=== PATIENT | female | born 2000 | race Two or more races ===

== ENCOUNTER 2024-02-28 15:24 | Emergency (ER) | payer OTHER, SELFPAY ==
[2024-02-28 15:43] VITALS: BP 119/85; PULSE 90; RESP 20; TEMP 36.7; O2SAT 99; BMI 34.5
--- NOTE | 2024-02-28 15:46 | PD.EDBACK ---
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 Limitations: no limitations Related Data Home Medications ?Medication ?Instructions ?Recorded ?Confirmed ferrous sulfate 325 mg (65 mg 325 mg PO BID 03/18/20 04/20/20 iron) tablet (iron) prenat.vits,dimas,[id number] 1 tab PO QDAY 03/18/20 04/20/20 Previous Rx's ?Medication ?Instructions ?Recorded ibuprofen 800 mg tablet 800 mg PO Q8H PRN pain #30 tabs 04/21/20 cyclobenzaprine 10 mg tablet 10 mg PO TID PRN muscle spasm 10 02/28/24 days #30 tab-caps ibuprofen 800 mg tablet 800 mg PO TID PRN pain #30 tabs 02/28/24 Allergies Allergy/AdvReac Type Severity Reaction Status Date / Time No Known Allergies Allergy Verified 08/23/23 12:53 Review of Systems Review of Systems Systems Reviewed: All systems reviewed, normal except as documented Constitutional Constitutional: Reports system reviewed and no additional complaints, except as documented, Denies fever(s) and Denies headache(s) Eyes Eyes: Reports system reviewed and no additional complaints, except as documented and Denies blurry vision ENT Ears, Nose, Mouth, and Throat: Reports system reviewed and no additional complaints, except as documented, Denies headache(s), Denies nasal congestion and Denies nasal discharge Cardiovascular Cardiovascular: Reports system reviewed and no additional complaints, except as documented, Denies chest pain and Denies dyspnea Respiratory Respiratory: Reports system reviewed and no additional complaints, except as documented, Denies chest congestion, Denies cough and Denies dyspnea Gastrointestinal Gastrointestinal: Reports system reviewed and no additional complaints, except as documented and Denies abdominal pain Musculoskeletal Musculoskeletal: Reports system reviewed and no additional complaints, except as documented and Reports back pain Integumentary/Breasts Skin/Breast: Reports system reviewed and no additional complaints, except as documented and Denies rash Neurologic Neurologic: Reports system reviewed and no additional complaints, except as documented, Reports as per HPI and Denies headache(s) Past Medical History Past Medical History NEUROLOGIC: Negative Neurological Disorders CARDIAC: Negative Cardiac Disorders, Myocardial Infarction, Cardiac Arrhythmia, Atrial Fibrillation, Angina, Heart Murmur, Coronary Artery Disease, Atherosclerotic Heart Disease, Peripheral Vascular Disease, Hypercholesterolemia, Aneurysm, Congestive Heart Failure, Congenital Heart Disease, Valvular Heart Disease, Rheumatic Fever, Cardiomyopathy, Edema, Pericarditis, Cellulitis, Deep Vein Thrombosis, Hypertension, Hypotension or Varicose Veins RESPIRATORY: Negative Chronic Obstructive Pulmonary Disease (COPD) GASTROINTESTINAL: Negative Gastrointestinal Disorders GENITOURINARY: Negative Genitourinary Disorders or Renal Disease REPRODUCTIVE: Positive Previous Pregnancies (2019); Negative Pelvic Inflammatory Disease MUSCULOSKELETAL: Positive Scoliosis; Negative Musculoskeletal Disorders or Carpal Tunnel Syndrome ENDOCRINE: Negative Endocrine Disorders, Diabetes Mellitus Type 1, Diabetes Mellitus Type 2, Hypoglycemia, [place]'s Syndrome, [place]'s Disease, Hyperthyroidism, Hypothyroidism, Parathyroid Disease, Pituitary Disease, Systemic Lupus Erythematosus, Syndrome of Inappropriate Antidiuretic Hormone (SIADH), Adrenal Disease or Graves' Disease HEMATOLOGIC: Negative Blood Disorders or Clotting Problems PSYCHO/SOCIAL: Positive Anxiety OTHER HISTORY: Negative Hospitalization, Autoimmune Disease, Down Syndrome, Developmental Delay, Falls, Blood Transfusions, Blood Transfusion Reaction, Anesthesia Reactions, Organ Transplant, MRSA, Clostridium Difficile or Cancer Family History FAMILY HISTORY: Negative Family Psychiatric Problems, Family Respiratory Disorders, Family Cardiac Disorders, Family Gastrointestinal Problems, Family Cancer, Family Surgery or Family Anesthesia Reaction Surgical History SURGICAL: Negative Cardiac Surgery, Pacemaker, Endocrine Surgery, Ear Surgery, Abdominal Surgery, Nephrectomy, Joint Replacement, Arthroscopy, Neurologic Surgery, Brain Shunt, Mastectomy, Lumpectomy, Hysterectomy, Tubal Ligation, Section or Organ Transplant Social History SMOKING STATUS: Never smoker SECOND HAND EXPOSURE: No ED Exam General Limitations: Present no limitations General appearance: Present alert and in no apparent distress Head Head exam: Present atraumatic Eye Eye exam: Present normal appearance, PERRL and EOMI ENT ENT exam: Present normal exam, normal oropharynx and mucous membranes moist Neck Neck exam: Present normal inspection, full ROM and trachea midline Chest Chest inspection: Present normal inspection and symmetric chest wall rise Respiratory Respiratory exam: Present normal lung sounds bilaterally Cardiovascular Cardiovascular exam: Present regular rate, normal rhythm and normal heart sounds Abdominal Exam Abdominal exam: Present soft and normal bowel sounds; Absent distention, tenderness, guarding, rebound or rigidity Extremities Exam Extremities exam: Present normal inspection and full ROM Back Exam Back exam: Present normal inspection, full ROM, tenderness, muscle spasm and paraspinal tenderness; Absent CVA tenderness (R), CVA tenderness (L) or vertebral tenderness Neurological Exam Neurological exam: Present alert, oriented X3 and CN II-XII intact Psychiatric Psychiatric exam: Present normal affect and normal mood Skin Skin exam: Present warm, dry, intact and normal color Course Quality Measures none Vital Signs Vital signs: Vital Signs Temperature 98.1 F 02/28/24 15:43 Pulse Rate 90 02/28/24 15:43 Respiratory Rate 20 02/28/24 15:43 Blood Pressure 119/85 H 02/28/24 15:43 Pulse Oximetry (%) 99 02/28/24 15:43 Oxygen Delivery Method Room Air 02/28/24 15:43 O2 saturation 99% on room air within the limits Back Pain / Injury MDM Narrative MDM Narrative:: 23-year-old female presents to the emergency department complains of lower back pain after moving a client 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 Patient reports no direct trauma Do not believe imaging is indicated at this time symptoms consistent with muscle spasm/muscular pain Patient does report taking ibuprofen before coming to the ER Workmen's Compensation papers completed patient given prescription for ibuprofen and Flexeril Patient discharged home in no distress to follow-up with primary care doctor in the next 24 to 48 hours and for any worsening symptoms to return to the ER immediately Patient data External records reviewed:: [facility] previous records Clinical information provided by:: patient Social determinants that could affect healthcare access:: none Patient has the following chronic illnesses:: None How is presenting disease/condition affected by chronic disease/condition?: no chronic disease Evaluation data The following diagnostics were reviewed and interpreted by me:: other (specify) (N/A) Lab and/or radiology exams considered but not ordered:: Consider not ordered Interpretation Summary: N/A Medications / Prescriptions Medications or Prescriptions considered but not ordered:: Given Medication administrations:: Given Consultations Consultation(s) initiated? (list below): No Diagnosis Differential diagnosis back pain/injury: lumbar radiculopathy, sciatica, strain of lumbar region and thoracic back pain Most likely diagnosis given after review of the tests above:: Back pain Admission Indicated Admission indicated?: not indicated Admission Request Was there a request for admission?: No Disposition Plan Disposition Plan: Discharge Discharge Attestation Discharge Attestation: The patient and all family members were given an opportunity to ask questions and understood the discharge instructions. Discharge instructions specifically effects, indications for sooner follow up or return to the emergency department, and the expected course of current diagnosis. Patient condition: Stable Discharge Plan Plan Patient Disposition: HOME (Self Care) Disposition Comment: Stable Prescriptions/Referrals Prescriptions/Med Rec: New cyclobenzaprine 10 mg tablet 10 mg PO TID PRN (Reason: muscle spasm) 10 Days Qty: 30 0RF ibuprofen 800 mg tablet 800 mg PO TID PRN (Reason: pain) Qty: 30 0RF No Action ferrous sulfate [iron] 325 mg (65 mg iron) Tablet 325 mg PO BID prenat.vits,dimas,[id number] Tablet 1 tab PO QDAY ibuprofen 800 mg tablet 800 mg PO Q8H PRN (Reason: pain) Qty: 30 0RF Problem List Clinical Impression: Back pain, Work related injury Patient/Caregiver Discharge Instructions Education Materials: Back Safety: Bending Additional Instructions: Please follow-up with Workmen's Compensation as discussed for worsening symptoms return immediately Print Language: Liberian Stand Alone Forms: Lou Award Info., Patient Portal Info Letter PA/SEARCH ENGINE OPTIMIZATION CONSULTANT Supervising Physician PA/SEARCH ENGINE OPTIMIZATION CONSULTANT Supervising Physician: Dr Da Silva
== END 2024-02-28 17:31 | disposition home or self-care (01) ==
PROVIDERS: Emergency Provider Emergency Medicine; PCP Family Medicine; Referring Provider Emergency Medicine
DX: S39.92XA Unspecified injury of lower back, initial encounter (principal); X50.0XXA Overexertion from strenuous movement or load, initial encounter; Y93.F2 Activity, caregiving, lifting; Y92.121 Bathroom in nursing home as the place of occurrence of the external cause; Y99.0 Civilian activity done for income or pay
CPT/HCPCS: 99281

== ENCOUNTER 2025-02-09 16:46 | Emergency (ER) | payer MEDICAID, SELFPAY ==
[2025-02-09 16:47] VITALS: BMI 34.5
[2025-02-09 17:32] VITALS: BP 103/70; PULSE 85; RESP 20; TEMP 36.8; O2SAT 99
--- NOTE | 2025-02-09 17:40 | XR_ITS ---
EXAMINATION: PA lateral chest 2 views TECHNIQUE: Upright PA lateral chest 2 views Date and time: February 09, 2025, 1807 hours INDICATIONS: Coughing beginning 1 month ago. FINDINGS: Normal heart size No pneumonia or pulmonary edema. Intact osseous structures IMPRESSION: No pneumonia identified
--- NOTE | 2025-02-09 17:40 | EDNOTE_ITS ---
<Statement entered by Bess Amaral MD - 02/12/25 17:41> As co-signing physician, I was present and available for consult prn. I concur with the plan and care as documented by the midlevel provider. Upper Respiratory Inf. RME/HPI General Chief Complaint: Flu Like Symptoms Stated Complaint: TROUBLE BREATHING X1 DAY, COUGH X1 MONTH Time Seen by Provider: 02/09/25 17:22 Source: patient, RN notes reviewed and old records reviewed Arrival date/time: 02/09/25 16:46 Mode of arrival: ambulatory Limitations: no limitations RME / HPI RME / HPI Narrative: 24yof presents to ED for 1 month history of persistent dry cough. Patient reports fever and congestion at symptom onset, now resolved the past few weeks. Patient took tried OTC cough medications without relief. Reports mild shortness of breath started today. No chest pain, nausea/vomiting, dizziness or syncope reported. Related Data Home Medications ?Medication ?Instructions ?Recorded ?Confirmed ferrous sulfate 325 mg (65 mg 325 mg PO BID 03/18/20 0 04/20/20 iron) tablet (iron) prenat.vits,dimas,[id number] 1 tab PO QDAY 03/18/20 04/20/20 Previous Rx's ?Medication ?Instructions ?Recorded ibuprofen 800 mg tablet 800 mg PO Q8H PRN pain #30 t abs 04/21/20 ibuprofen 800 mg tablet 800 mg PO TID PRN pain #30 t abs 02/28/24 albuterol sulfate 90 mcg/actuation 2 puff inhalation Q 4H PRN 02/09/25 aerosol inhaler (Ventolin HFA) shortness of breath or wheezing #8.5 grams benzonatate 200 mg capsule 200 mg PO TID PRN cough #20 caps 02/09/25 prednisone 50 mg tablet 50 mg PO QDAY 5 days #5 tabs 02/09/25 Allergies Allergy/AdvReac Type Severity Reaction Status Date / Time No Known Allergies Allergy Verified 02/09/25 16:48 Review of Systems Review of Systems Systems Reviewed: All systems reviewed, normal except as documented Constitutional Constitutional: Denies chills and Denies fever(s) ENT Ears, Nose, Mouth, and Throat: Denies nasal congestion Cardiovascular Cardiovascular: Denies chest pain and Reports dyspnea Respiratory Respiratory: Reports dyspnea Gastrointestinal Gastrointestinal: Denies nausea and Denies vomiting Musculoskeletal Musculoskeletal: Denies myalgias Past Medical History Past Medical History GASTROINTESTINAL: Positive Obesity PSYCHO/SOCIAL: Positive Anxiety Surgical History OTHER SURGICAL HX: denies pshx Social History SMOKING STATUS: Never smoker SUBSTANCE USE: does not use ALCOHOL: Never ED Exam General Limitations: Present no limitations General appearance: Present alert and in no apparent distress Head Head exam: Present atraumatic and normocephalic Eye Eye exam: Present normal appearance, PERRL and EOMI ENT ENT exam: Present normal exam and mucous membranes moist Neck Neck exam: Present normal inspection and full ROM Chest Chest inspection: Present normal inspection and symmetric chest wall rise Respiratory Respiratory exam: Present normal lung sounds bilaterally and other (No wheezing, rales or rhonchi); Absent respiratory distress Cardiovascular Cardiovascular exam: Present regular rate and normal rhythm Extremities Exam Extremities exam: Present normal inspection and full ROM Back Exam Back exam: Present normal inspection and full ROM Neurological Exam Neurological exam: Present alert and oriented X3 Psychiatric Psychiatric exam: Present normal affect and normal mood Skin Skin exam: Present warm, dry, intact and normal color Course Quality Measures none Orders Category Date Time Status CXR2 [XR chest 2V] Stat Exams 02/09/25 17:40 Completed ALBUTEROL RT 0.5ml [Proventil Rt 0.5ml] Med 02/09/25 17:40 Discontinued 5 mg INH X1 ONE Sodium Chloride Rt Alessia 0.9% [NS Rt Alessia 0.9%] Med 02/09/25 17:40 Discontinued 3 ml INH PRN PRN predniSONE Med 02/09/25 17:40 Discontinued 40 mg PO X1 ONE Vital Signs Vital signs: Vital Signs Temperature 98.2 F 02/09/25 17:32 Pulse Rate 85 02/09/25 17:32 Respiratory Rate 20 02/09/25 17:32 Blood Pressure 103/70 02/09/25 17:32 Pulse Oximetry (%) 99 02/09/25 17:32 Oxygen Delivery Method Room Air 02/09/25 17:32 Upper Respiratory Infection MDM Narrative MDM Narrative:: 24yof presents to ED for 1 month history of persistent dry cough. Patient reports fever and congestion at symptom onset, now resolved the past few weeks. Patient took tried OTC cough medications without relief. Reports mild shortness of breath started today. No chest pain, nausea/vomiting, dizziness or syncope reported. Patient reassessed. Symptoms improved after prednisone and neb treatment. Patient is nontoxic-appearing, afebrile, vitals are stable. No evidence of respiratory distress or hypoxia. Will treat for bronchitis. Stable for discharge, RTED precautions given. Patient data External records reviewed:: [facility] previous records (02/28/24 ED visit for back pain) Clinical information provided by:: patient Social determinants that could affect healthcare access:: other (specify) (poor access to healthcare) Patient has the following chronic illnesses:: obesity, anxiety How is presenting disease/condition affected by chronic disease/condition?: uneffected by Evaluation data The following diagnostics were reviewed and interpreted by me:: radiology exam(s) Lab and/or radiology exams considered but not ordered:: COVID/flu: Results would not affect treatment plan Interpretation Summary: CXR: No pneumonia per my read Medications / Prescriptions Medications or Prescriptions considered but not ordered:: No antibiotics recommended at this time Medication administrations:: Medication Administration History Discontinued Medications Albuterol (Albuterol Rt 2.5 Mg/0.5 Ml Nebu) 5 mg INH X1 ONE Stop: 02/09/25 17:41 Last Admin: 02/09/25 17:54 Dose: 5 mg Documented By: MAXIMO Prednisone (Prednisone 20 Mg Tablet) 40 mg PO X1 ONE Stop: 02/09/25 17:41 Last Admin: 02/09/25 18:09 Dose: 40 mg Documented By: Sodium Chloride (Sodium Chloride Rt Alessia 0.9% 3 Ml Nebu) 3 ml INH PRN PRN PRN Reason: SOLN Stop: 03/11/25 17:39 Last Admin: 02/09/25 17:54 Dose: 3 ml Documented By: MAXIMO Above medications administered in ED Consultations Consultation(s) initiated? (list below): No Diagnosis Upper Respiratory Differential Diagnosis: upper respiratory infection, viral infection, bronchitis, influenza and other (Pneumonia) Most likely diagnosis given after review of the tests above:: Bronchitis Admission Indicated Admission indicated?: not indicated Admission Request Was there a request for admission?: No Disposition Plan Disposition Plan: Discharge Discharge Attestation Discharge Attestation: The patient and all family members were given an opportunity to ask questions and understood the discharge instructions. Discharge instructions specifically effects, indications for sooner follow up or return to the emergency department, and the expected course of current diagnosis. Patient condition: Stable Discharge Plan Plan Patient Disposition: HOME (Self Care) Patient condition on transfer: Stable Prescriptions/Referrals Prescriptions/Med Rec: New prednisone 50 mg tablet 50 mg PO QDAY 5 Days Qty: 5 0RF benzonatate 200 mg capsule 200 mg PO TID PRN (Reason: cough) Qty: 20 0RF albuterol sulfate [Ventolin HFA] 90 mcg/actuation HFA aerosol inhaler 2 puff inhalation Q4H PRN (Reason: shortness of breath or wheezing) Qty: 8.5 0RF No Action ferrous sulfate [iron] 325 mg (65 mg iron) Tablet 325 mg PO BID prenat.vits,dimas,[id number]-[id number]-wftwa Tablet 1 tab PO QDAY ibuprofen 800 mg tablet 800 mg PO Q8H PRN (Reason: pain) Qty: 30 0RF ibuprofen 800 mg tablet 800 mg PO TID PRN (Reason: pain) Qty: 30 0RF Problem List Clinical Impression: Bronchitis Patient/Caregiver Discharge Instructions Education Materials: ED Bronchitis, No Antibiotic (Adult) Print Language: Telugu Stand Alone Forms: Lou Award Info., Patient Portal Info Letter PA/CORPORATE LOGISTICS MANAGER Supervising Physician PA/CORPORATE LOGISTICS MANAGER Supervising Physician: Cristin
[2025-02-09 17:54] VITALS: PULSE 83
[2025-02-09] MEDS: ALBUTEROL RT 2.5 MG/0.5 ML NEBU 5 MG INH (17:54)
[2025-02-09] MEDS: SODIUM CHLORIDE RT SOL 0.9% 3 ML NEBU INH (17:54)
[2025-02-09 17:58] VITALS: PULSE 93; RESP 18; O2SAT 100
== END 2025-02-09 19:23 | disposition home or self-care (01) ==
LOC: SERX 19:07
PROVIDERS: Emergency Provider Emergency Medicine
DX: J40 Bronchitis, not specified as acute or chronic (principal)
CPT/HCPCS: 71046; 94640; 99283; J7512; J7611